=== PATIENT | female | born 1980 | race African-American/Black ===

== ENCOUNTER 2020-11-08 18:16 | Observation (INO) | payer OTHER ==
[2020-11-08 19:42] LABS: BASO % 0.2 % (0-2.0); EOS % 2.2 % (0-4.5); HEMATOCRIT 20.9 % (32.4-45.2); LYMPH % 24.9 % (8-40); MCHC 31.6 g/dl (32.0-36.0); MEAN CELL VOLUME 53.4 fl (80-96); MEAN PLT VOLUME 8.3 fl (7.5-11.1); MONO % 9.7 % (3.8-10.2); PLATELET COUNT 348 K/MM3 (134-434); RBC 3.92 M/mm3 (3.60-5.2); RDW 21.3 % (11.6-15.6); WHITE BLOOD COUNT 9.1 K/mm3 (4.0-10.0)
[2020-11-08 19:52] LABS: MCH 16.9 pg (25.7-33.7)
[2020-11-08 19:53] LABS: HEMOGLOBIN 6.6 GM/dL (10.7-15.3)
[2020-11-08 20:04] LABS: ALBUMIN 3.2 g/dl (3.4-5.0); CALCIUM 8.8 mg/dL (8.5-10.1)
[2020-11-08 20:05] LABS: BLOOD UREA NITROGEN 6.4 mg/dL (7-18)
[2020-11-08 20:09] LABS: BILIRUBIN,TOTAL 0.5 mg/dL (0.2-1); CREATININE 0.4 mg/dL (0.55-1.3); TOT PROT 7.2 g/dl (6.4-8.2)
[2020-11-08 21:09] LABS: ANISOCYTOSIS 2+; MACROCYTOSIS 0; PLATELET ESTIMATE NORMAL; ROULEAU 1+
[2020-11-09 03:31] VITALS: BMI 22.6
[2020-11-09 07:36] LABS: BASO % 0.2 % (0-2.0); EOS % 2.6 % (0-4.5); HEMATOCRIT 25.3 % (32.4-45.2); HEMOGLOBIN 8.2 GM/dL (10.7-15.3); LYMPH % 21.3 % (8-40); MCHC 32.5 g/dl (32.0-36.0); MEAN CELL VOLUME 61.3 fl (80-96); MEAN PLT VOLUME 8.4 fl (7.5-11.1); MONO % 9.1 % (3.8-10.2); NEUT % 66.8 % (42.8-82.8); PLATELET COUNT 263 K/MM3 (134-434); RBC 4.13 M/mm3 (3.60-5.2); RDW 34.2 % (11.6-15.6); WHITE BLOOD COUNT 8.7 K/mm3 (4.0-10.0)
[2020-11-09 07:45] LABS: MCH 19.9 pg (25.7-33.7)
[2020-11-09 08:00] LABS: BLOOD UREA NITROGEN 5.4 mg/dL (7-18); CALCIUM 8.5 mg/dL (8.5-10.1)
[2020-11-09 08:04] LABS: CREATININE 0.3 mg/dL (0.55-1.3)
[2020-11-09] MEDS: FERROUS SO4 325 MG TABLET (FP) PO SCH (11:21)
[2020-11-09] MEDS: PRENATAL VITAMINS W/ FOLIC ACID TABLET (FP) PO SCH (11:21)
[2020-11-10 07:35] LABS: HEMATOCRIT 29.8 % (32.4-45.2); HEMOGLOBIN 9.9 GM/dL (10.7-15.3); MCH 20.9 pg (25.7-33.7); MCHC 33.4 g/dl (32.0-36.0); MEAN CELL VOLUME 62.7 fl (80-96); MEAN PLT VOLUME 8.3 fl (7.5-11.1); PLATELET COUNT 292 K/MM3 (134-434); RBC 4.75 M/mm3 (3.60-5.2); RDW 35.3 % (11.6-15.6); WHITE BLOOD COUNT 9.7 K/mm3 (4.0-10.0)
[2020-11-10 08:21] LABS: BLOOD UREA NITROGEN 5.5 mg/dL (7-18)
[2020-11-10 08:22] LABS: MAGNESIUM 1.9 mg/dL (1.8-2.4)
[2020-11-10 08:23] LABS: CALCIUM 8.5 mg/dL (8.5-10.1)
[2020-11-10 08:24] LABS: CREATININE 0.3 mg/dL (0.55-1.3)
[2020-11-10] MEDS ORDERED: PT OWN MED DRAWER 7, Y5N ONE (08:37)
[2020-11-10] MEDS: FERROUS SO4 325 MG TABLET (FP) PO SCH (09:39)
[2020-11-10] MEDS: PRENATAL VITAMINS W/ FOLIC ACID TABLET (FP) PO SCH (09:39)
[2020-11-10] MEDS ORDERED: ASPIRIN COATED 81 MG TABLET.EC PO SCH (12:30)
[2020-11-10 14:15] VITALS: BP 121/76; PULSE 92; TEMP 98.5
== END 2020-11-10 15:54 | disposition home or self-care (01) ==
LOC: JER 18:16 → JERBED 20:44 → J7W 11-09 03:04
PROVIDERS: ADMIT Internal Medicine; ATTEND Family Medicine
PROC: 30233N1 Transfusion of Nonautologous Red Blood Cells into Peripheral Vein, Percutaneous Approach (ICD-10-PCS; principal; 2020-11-08)
DX: O99.012 Anemia complicating pregnancy, second trimester (principal); D50.9 Iron deficiency anemia, unspecified; D57.3 Sickle-cell trait; O24.112 Pre-existing type 2 diabetes mellitus, in pregnancy, second trimester; Z79.84 Long term (current) use of oral hypoglycemic drugs; O10.912 Unspecified pre-existing hypertension complicating pregnancy, second trimester; Z3A.14 14 weeks gestation of pregnancy
CPT/HCPCS: 36415; 36430; 76801-TC; 80048; 80053; 82607; 82728; 82746; 82962; 83010; 83036; 83540; 83550; 83735; 85025; 85027; 86850; 86900; 86901; 86922; 93005; 93010; 93306-TC; 99285-25; C9803; G0378; P9058; U0003; U0005